=== PATIENT | male | born 1995 | race Caucasian/White ===

== ENCOUNTER 2017-10-29 19:08 | Inpatient (IN) | payer OTHER ==
[~2017-10-29] VITALS: Ht 167.6 cm; Wt 63.5 kg
[2017-10-29] MEDS ORDERED: ACETAMINOPHEN 325 MG TABLET PO PRN (21:30)
[2017-10-29] MEDS ORDERED: BUPRENORPHINE HCL 2 MG TAB.SUBL SL PRN (21:30)
[2017-10-29] MEDS ORDERED: 3 DAY TAPER BUPRENORPHINE -SERENITY PROTOCOL SL PRN (21:30)
[2017-10-29] MEDS ORDERED: MAG HYDROX/AL HYDROX/SIMETH 30 ML LIQUID UDC PO PRN (21:30)
[2017-10-29] MEDS ORDERED: ONDANSETRON ODT 4 MG TAB.RAPDIS SL PRN (21:30)
[2017-10-29] MEDS ORDERED: MAGNESIUM HYDROXIDE 30 ML LIQUID UDC PO PRN (21:30)
[2017-10-29] MEDS ORDERED: diphenhydrAMINE 50 MG CAPSULE PO PRN (21:30)
[2017-10-29] MEDS ORDERED: MIRALAX 17 GM POWD.PACK PO PRN (21:30)
[2017-10-29] MEDS ORDERED: ONDANSETRON 4 MG/2 ML VIAL IM PRN (21:30)
[2017-10-29] MEDS ORDERED: LOPERAMIDE HCL 2 MG CAPSULE PO PRN ×2 (21:30)
[2017-10-29 21:31] VITALS: BP 107/72
[2017-10-29 21:46] LABS: BASOPHILS # (AUTO) 0.1 K/uL (0.0-8.0); EOSINOPHILS # (AUTO) 0.6 K/uL (0.0-0.7); EOSINOPHILS % (AUTO) 6.4 % (0.0-7.0); HEMATOCRIT 42.2 % (36.7-47.1); HEMOGLOBIN 14.7 g/dL (12.5-16.3); LYMPHOCYTES # (AUTO) 3.1 K/uL (20.0-40.0); LYMPHOCYTES % (AUTO) 35.6 % (20.5-51.5); MEAN CORPUSCULAR HEMOGLOBIN 29.7 uug (23.8-33.4); MEAN CORPUSCULAR HGB CONC 35 g/dL (32.5-36.3); MEAN CORPUSCULAR VOLUME 85.2 fL (73.0-96.2); MONOCYTES # (AUTO) 0.8 K/uL (2.0-10.0); MONOCYTES % (AUTO) 8.9 % (0.0-11.0); NEUTROPHILS # (AUTO) 4.2 K/uL (1.8-8.9); NEUTROPHILS % (AUTO) 48.1 % (38.5-71.5); PLATELET COUNT (AUTO) 241 K/uL (152-348); RED BLOOD CELL COUNT(AUTO) 4.96 MIL/uL (4.06-5.63); WHITE BLOOD COUNT (AUTO) 8.7 K/uL (3.6-10.2)
[2017-10-29 21:58] LABS: *AMPHETAMINE, URINE NEGATIVE (NEGATIVE); *BARBITURATE, URINE NEGATIVE (NEGATIVE); *CANNABINOID, URINE POSITIVE (NEGATIVE); *COCCAINE, URINE NEGATIVE (NEGATIVE); *OPIATE, URINE POSITIVE (NEGATIVE); *PHENCYCLIDINE SCREEN,URINE NEGATIVE (NEGATIVE); ETHANOL < 3 MG/DL (0-0)
[2017-10-29 22:08] LABS: ALANINE AMINOTRANSFERASE 26 U/L (16-63); ALKALINE PHOSPHATASE 85 U/L (50-136); AMYLASE 42 U/L (25-115); ASPARTATE AMINOTRANSFERASE 26 U/L (15-37); BILIRUBIN,TOTAL 0.4 mg/dL (0.2-1.0); CARBON DIOXIDE 31 mmol/L (21-32); CHLORIDE 100 mmol/L (98-107); CREATININE 0.9 mg/dL (0.6-1.3); GLUCOSE 92 mg/dL (74-106); LIPASE 99 U/L (73-393); POTASSIUM 4.4 mmol/L (3.5-5.1); TOTAL PROTEIN, SERUM 8.2 g/dL (6.4-8.2); UREA NITROGEN, BLOOD 13 mg/dL (7-18)
[2017-10-29 22:28] LABS: THYROID STIMULATING HORMONE 0.602 mIU/mL (0.358-3.740)
[2017-10-29] MEDS: METHOCARBAMOL 750 MG TABLET PO PRN (23:20)
[2017-10-30] VITALS: BP 120/82
[2017-10-30] MEDS ORDERED: NEOM28.37 TP (00:34)
[2017-10-30] MEDS ORDERED: 3 DAY TAPER BUPRENORPHINE -SERENITY PROTOCOL SL PRN (07:45)
[2017-10-30 08:54] VITALS: BP 113/74
[2017-10-30] MEDS ORDERED: TUBERCULIN,PURIF.PROT.DERIV. 5 TU/0.1 ML TEST ID ONE (09:00)
[2017-10-30] MEDS: BUPRENORPHINE HCL 2 MG TAB.SUBL SL SCH ×2 (09:00→21:38)
[2017-10-30] MEDS: MULTIVITAMINS,THERAPEUTIC TABLET PO SCH (09:53)
[2017-10-30 12:00] VITALS: BP 120/73
[2017-10-30] MEDS ORDERED: BUPRENORPHINE HCL 2 MG TAB.SUBL SL ONE ×2 (12:00→22:38)
[2017-10-30] MEDS: IBUPROFEN 400 MG TABLET PO PRN (14:20)
[2017-10-30] MEDS: DICYCLOMINE HCL 20 MG TABLET PO PRN (14:20)
[2017-10-30] MEDS: CLONIDINE HCL 0.1 MG TABLET PO PRN (14:20)
[2017-10-30] MEDS: HYDROXYZINE PAMOATE 25 MG CAPSULE PO PRN (14:20)
[2017-10-30] MEDS: METHOCARBAMOL 750 MG TABLET PO PRN (14:20)
[2017-10-30 16:30] VITALS: BP 100/56
[2017-10-30 20:00] VITALS: BP 96/42
[2017-10-30] MEDS ORDERED: DIAZEPAM 10 MG TABLET ONE (22:38)
[2017-10-31] VITALS: BP 104/53
[2017-10-31] MEDS: HYDROXYZINE PAMOATE 25 MG CAPSULE PO PRN (00:36)
[2017-10-31] MEDS: DICYCLOMINE HCL 20 MG TABLET PO PRN ×2 (00:36→21:27)
[2017-10-31 04:00] VITALS: BP 97/54
[2017-10-31 08:00] VITALS: BP 103/60
[2017-10-31] MEDS: BUPRENORPHINE HCL 2 MG TAB.SUBL SL SCH ×3 (08:55→21:28)
[2017-10-31] MEDS: MULTIVITAMINS,THERAPEUTIC TABLET PO SCH (08:55)
[2017-10-31 11:08] LABS: HEPATITIS B SURFACE AG Negative (Negative)
[2017-10-31 12:00] VITALS: BP 106/62
[2017-10-31 16:00] VITALS: BP 105/60
[2017-10-31 20:00] VITALS: BP 124/61
[2017-10-31] MEDS: METHOCARBAMOL 750 MG TABLET PO PRN (21:27)
[2017-10-31] MEDS: CLONIDINE HCL 0.1 MG TABLET PO PRN (21:28)
[2017-11-01] VITALS: BP 115/62
[2017-11-01 04:00] VITALS: BP 105/58
[2017-11-01 08:00] VITALS: BP 101/64
[2017-11-01] MEDS: MULTIVITAMINS,THERAPEUTIC TABLET PO SCH (08:48)
[2017-11-01] MEDS ORDERED: BUPRENORPHINE HCL 2 MG TAB.SUBL SL SCH (09:00)
[2017-11-01 12:00] VITALS: BP 111/58
[2017-11-01] MEDS ORDERED: CLON0.1T14 PO (14:20)
[2017-11-01] MEDS ORDERED: DICY20TA28 PO (14:20)
[2017-11-01] MEDS ORDERED: HYDR-3895 PO (14:20)
[2017-11-01] MEDS ORDERED: IBUP-1953 PO (14:20)
[2017-11-01] MEDS ORDERED: DIPH50CA37 PO (14:20)
[2017-11-01] MEDS ORDERED: METH-406 PO (14:20)
[2017-11-01 16:00] VITALS: BP 121/69
[2017-11-01 20:00] VITALS: BP 124/63
[2017-11-01] MEDS: CLONIDINE HCL 0.1 MG TABLET PO PRN (21:20)
[2017-11-01] MEDS: HYDROXYZINE PAMOATE 25 MG CAPSULE PO PRN (21:20)
[2017-11-01] MEDS: METHOCARBAMOL 750 MG TABLET PO PRN (21:20)
[2017-11-01] MEDS: IBUPROFEN 400 MG TABLET PO PRN (21:32)
[2017-11-02 08:00] VITALS: BP 125/65
[2017-11-02] MEDS: DICYCLOMINE HCL 20 MG TABLET PO PRN (08:30)
[2017-11-02] MEDS: MULTIVITAMINS,THERAPEUTIC TABLET PO SCH (08:30)
== END 2017-11-02 09:25 | disposition other institution (70) | DRG 895 ==
LOC: SRC 20:44
PROVIDERS: ADMIT Family Medicine Addiction Medicine; ATTEND Family Medicine Addiction Medicine
PROC: HZ2ZZZZ Detoxification Services for Substance Abuse Treatment (ICD-10-PCS; principal; 2017-10-29)
PROC: HZ31ZZZ Individual Counseling for Substance Abuse Treatment, Behavioral (ICD-10-PCS; 2017-10-31)
PROC: HZ41ZZZ Group Counseling for Substance Abuse Treatment, Behavioral (ICD-10-PCS; 2017-11-01)
DX: F11.23 Opioid dependence with withdrawal (principal); F17.210 Nicotine dependence, cigarettes, uncomplicated; Z81.1 Family history of alcohol abuse and dependence; F32.9 Major depressive disorder, single episode, unspecified
CPT/HCPCS: 36415; 70030-TC; 80307; 80346; 80349; 80361; 83690; 83735; 84443; 85025; 86592; 86705; 86803; 87340; 87806; A4663; G0480; Q0162; Q0163